=== PATIENT | female | born 1960 | race Caucasian/White ===

== ENCOUNTER 2018-10-11 06:58 | Inpatient (IN) | payer MEDICARE, MEDICAID ==
[~2018-10-11] VITALS: Ht 167.6 cm; Wt 125.6 kg
[2018-10-11] MEDS ORDERED: ESCI10TA2 PO (07:41)
[2018-10-11] MEDS ORDERED: MUCI600T37 PO (07:41)
[2018-10-11] MEDS ORDERED: AUGM250S13 PO (07:41)
[2018-10-11] MEDS ORDERED: SOTA80TA PO (07:41)
[2018-10-11] MEDS ORDERED: METF500T13 PO ×2 (07:41→10:53)
[2018-10-11] MEDS ORDERED: WARF-60 PO (07:41)
[2018-10-11] MEDS ORDERED: OMEP10CASR PO (07:41)
[2018-10-11] MEDS ORDERED: SYMB16INH INH (07:56)
[2018-10-11] MEDS ORDERED: MECL-68 PO (07:56)
[2018-10-11] MEDS ORDERED: ATIV1TAB7 PO (07:56)
[2018-10-11] MEDS ORDERED: LOPE2CA PO (08:21)
[2018-10-11 08:30] LABS: HEMATOCRIT 36.4 % (36.0-47.0); HEMOGLOBIN 11.3 g/dl (12.0-15.5)
[2018-10-11] MEDS ORDERED: ALBU83IN PO (08:30)
[2018-10-11] MEDS ORDERED: NYST1POW9 TOP (10:53)
[2018-10-11] MEDS ORDERED: AMOX400S PO (10:53)
[2018-10-11] MEDS ORDERED: KLOR CON PO (10:53)
[2018-10-11] MEDS ORDERED: OMEP20CA3 PO (10:53)
[2018-10-11] MEDS ORDERED: hydrOXYzine 50 MG TAB PO STA (12:29)
[2018-10-11] MEDS ORDERED: ACETAMINOPHEN TAB 650MG DOSE (2X325MG) PO PRN (12:30)
[2018-10-11] MEDS ORDERED: MAALOX 30 ML SUSP *UDC PO PRN (12:30)
[2018-10-11] MEDS ORDERED: MOM 30ML SUSPENSION UDC PO PRN (12:30)
[2018-10-11] MEDS ORDERED: traZODone 50 MG TAB PO PRN (12:30)
[2018-10-11 13:05] VITALS: BP 120/56
[2018-10-11] MEDS ORDERED: LOPERAMIDE 2 MG CAP PO PRN (15:15)
[2018-10-11] MEDS ORDERED: NYSTATIN 100,000 UNITS/GM TOPICAL PWD 15 GM TOP PRN (15:15)
[2018-10-11] MEDS ORDERED: MECLIZINE 25 MG TABLET PO PRN (15:15)
[2018-10-11 16:12] LABS: HEMATOCRIT 36.8 % (36.0-47.0); HEMOGLOBIN 11.3 g/dl (12.0-15.5); MEAN CORPUSCULAR HEMOGLOBIN 26.9 pg (27.0-33.0); MEAN CORPUSCULAR HGB CONC 30.7 g/dl (32.0-36.5); MEAN CORPUSCULAR VOLUME 87.6 fl (80.0-96.0); PLATELET COUNT, AUTOMATED 298 10^3/uL (150-450); WHITE BLOOD COUNT 7.8 10^3/uL (4.0-10.0)
[2018-10-11 16:24] LABS: INR 1.83; PROTHROMBIN TIME 21.5 SECONDS (12.1-14.4)
[2018-10-11 16:25] LABS: PARTIAL THROMBOPLASTIN TIME 32.1 SECONDS (25.4-37.6)
[2018-10-11 16:40] LABS: ALBUMIN 3.5 GM/DL (3.2-5.2); ALT/SGPT 97 U/L (12-78); BILIRUBIN,TOTAL 0.5 MG/DL (0.2-1.0); BLOOD UREA NITROGEN 13 MG/DL (7-18); CALCIUM LEVEL 9.1 MG/DL (8.5-10.1); CARBON DIOXIDE LEVEL 28 MEQ/L (21-32); CHLORIDE LEVEL 103 MEQ/L (98-107); CREATININE FOR GFR 0.99 MG/DL (0.55-1.30); GLOMERULAR FILTRATION RATE > 60.0 (>51); GLUCOSE, FASTING 131 MG/DL (70-100); POTASSIUM SERUM 3.8 MEQ/L (3.5-5.1); SODIUM LEVEL 137 MEQ/L (136-145); TOTAL PROTEIN 7.5 GM/DL (6.4-8.2)
[2018-10-11] MEDS: ESCITALOPRAM OXALATE 10 MG TAB (LEXAPRO) PO SCH (17:18)
[2018-10-11] MEDS: metFORMIN (GLUCOPHAGE) 500 MG TAB PO SCH (17:18)
[2018-10-11] MEDS: hydrOXYzine 50 MG TAB PO PRN (18:58)
[2018-10-11] MEDS: WARFARIN SOD 3 MG TAB PO SCH (19:07)
[2018-10-11] MEDS: ALBUTEROL SULFATE 2.5 MG/0.5 ML INH NEB SOLN INH PRN (19:20)
[2018-10-11] MEDS: SYMBICORT 160/4.5MCG INHALER 6GM INH SCH (21:00)
[2018-10-11] MEDS: NYSTATIN 100,000 UNITS/GM TOPICAL PWD 15 GM TOP SCH (21:00)
[2018-10-11] MEDS: AUGMENTIN BID 400MG/5ML SUSP 50ML BTL PO SCH (21:29)
[2018-10-11] MEDS: OMEPRAZOLE 20 MG CAP PO SCH (21:29)
[2018-10-11] MEDS: SOTALOL HCL 80 MG TAB PO SCH (21:29)
[2018-10-12 06:37] VITALS: BP 120/82
[2018-10-12 06:57] LABS: BASO % 0.4 % (0.0-1.0); EOS # 0.3 10^3/uL (0.0-0.50); HEMATOCRIT 35.2 % (36.0-47.0); HEMOGLOBIN 10.9 g/dl (12.0-15.5); LYMPH # 2.3 10^3/uL (1.5-4.5); LYMPH % 30.6 % (24.0-44.0); MEAN CORPUSCULAR VOLUME 87.3 fl (80.0-96.0); MONO # 0.6 10^3/uL (0.0-0.8); MONO % 8.4 % (0.0-5.0); NEUTROPHILS # 4.2 10^3/uL (1.8-7.7); NEUTROPHILS % 56.2 % (36.0-66.0); PLATELET COUNT, AUTOMATED 317 10^3/uL (150-450); RED BLOOD COUNT 4.03 10^6/uL (4.00-5.40); WHITE BLOOD COUNT 7.5 10^3/uL (4.0-10.0)
[2018-10-12 07:11] LABS: INR 1.98; PROTHROMBIN TIME 22.9 SECONDS (12.1-14.4)
[2018-10-12 07:46] LABS: ALBUMIN 3.7 GM/DL (3.2-5.2); ALT/SGPT 80 U/L (12-78); BILIRUBIN,TOTAL 0.8 MG/DL (0.2-1.0); BLOOD UREA NITROGEN 12 MG/DL (7-18); CALCIUM LEVEL 8.7 MG/DL (8.5-10.1); CARBON DIOXIDE LEVEL 26 MEQ/L (21-32); CHLORIDE LEVEL 102 MEQ/L (98-107); CREATININE FOR GFR 0.85 MG/DL (0.55-1.30); GLOMERULAR FILTRATION RATE > 60.0 (>51); GLUCOSE, FASTING 145 MG/DL (70-100); POTASSIUM SERUM 4.1 MEQ/L (3.5-5.1); SODIUM LEVEL 136 MEQ/L (136-145); TOTAL PROTEIN 7.3 GM/DL (6.4-8.2)
[2018-10-12] MEDS: LACTOBACILLUS ACIDOPHILUS CAP (BACID) PO SCH ×2 (07:56→17:28)
[2018-10-12] MEDS: SYMBICORT 160/4.5MCG INHALER 6GM INH SCH ×2 (08:03→20:52)
[2018-10-12] MEDS: ESCITALOPRAM OXALATE 10 MG TAB (LEXAPRO) PO SCH (08:04)
[2018-10-12] MEDS: NYSTATIN 100,000 UNITS/GM TOPICAL PWD 15 GM TOP SCH ×2 (08:04→20:50)
[2018-10-12] MEDS: AUGMENTIN BID 400MG/5ML SUSP 50ML BTL PO SCH ×2 (08:05→20:51)
--- NOTE | 2018-10-12 09:10 | REP ---
Chest two views HISTORY: Pneumonia Comparison: None There is elevation of the right hemidiaphragm. Linear densities are present in the left lower lobe consistent with atelectasis or scar. The right lung is clear. . The heart is normal in size. The pulmonary vasculature is normal in appearance. The bony structure is intact. IMPRESSION: Left lower lobe atelectasis or scar. Electronically Signed by Philip Trejo MD 10/12/2018 09:01 A
--- NOTE | 2018-10-12 10:31 | HPE ---
DATE OF ADMISSION: 10/11/2018 HISTORY OF PRESENT ILLNESS: Please refer to psychiatric history and evaluation for further details on this admission. This examination and history is intended for medical issues which may need treatment, followup or consult on this 58-year-old female who was transferred from [facility] where she had initially gone for increased mucous. She stated she was going to kill herself when they were preparing to discharge her. She was transferred to inpatient mental health here in [place]. ETOH once a month. Smoking: She states she quit in 2005. Recreational drug use none. FAMILY HISTORY: Noncontributory. PAST MEDICAL HISTORY: Depression/anxiety. Gastroesophageal reflux disease (GERD). Non-insulin dependent diabetes type 2. Premature ventricular contractions. History of pulmonary embolism (PE). History of lupus, anticoagulant. History of recent gastrointestinal (GI) bleed and pneumonia treated at [facility]. PAST SURGICAL HISTORY: Bowel resection. She had an ileostomy with reversal. Bilateral knee surgery. section. Kidney stones with history of stent. She has a history of Rosa filter. HOME MEDICATIONS: - lorazepam 1 mg by mouth three times daily as needed anxiety - Chlor-Con 20 mEq by mouth daily - albuterol 2.5 two puffs by mouth every 6 hours as needed shortness of breath - Augmentin suspension by mouth twice daily - Lexapro 10 mg by mouth daily - guaifenesin 600 mg by mouth twice daily as needed chest congestion - loperamide 2 mg two caps by mouth as needed diarrhea - meclizine 25 mg by mouth three times daily as needed dizziness - metformin 500 mg by mouth daily every evening - Nystatin 100,000 units powder apply to affected areas on groin and abdominal folds bilaterally twice daily - omeprazole 20 mg by mouth daily - sotalol 80 mg by mouth daily - warfarin 6 mg by mouth daily LABORATORY STUDIES: Hemoglobin and hematocrit this morning 11.3/36.4, afternoon 11.3/26.8. Platelets 298. BUN was 13, creatinine was 0.99, electrolytes were normal. Nonfasting blood sugar was 131. Liver enzymes were elevated at 116 and 97, will recheck in the a.m. Patient is on warfarin. INR slightly low at 1.83. She states she just recently restarted it on . REVIEW OF SYSTEMS: No complaint of headache. No blurry or double vision. No fever. No chills. No tinnitus. No hoarseness. She states when she gets a lot of mucous she has difficulty swallowing. Feels like she cannot swallow. No lightheadedness. Occasional vertigo. BREASTS: No masses. CARDIOVASCULAR: No complaints of chest pain, shortness of breath, palpitations or edema. RESPIRATORY: She had a cough with mucous production, wheeze. Denies orthopnea. GI: No nausea, vomiting. No hematochezia, no melena. No complaints of abdominal pain. Complaints of diarrhea 12-15 stools loose already today. : No hematuria, dysuria or frequency. MUSCULOSKELETAL: No joint redness or swelling. ENDOCRINE: History of non-insulin dependent diabetes type 2. HEMATOLOGICAL: History of anemia and GI bleed. NEUROLOGICAL: History of neuropathy. No history of seizures. PSYCHOLOGICAL: History of anxiety and depression. OBJECTIVE: 58-year-old cooperative female in no acute distress. Height 66 inches, weight 125.5 kg. BMI 24.7. Pupils equal and reactive to light. Extraocular movements intact. Cornea and sclera clear. Conjunctiva normal. No facial asymmetry. Pharynx, tongue and gums pink and moist. Tongue is midline. Neck is supple, without lymphadenopathy. No thyromegaly. No goiter. Carotids 2+ without bruit. Chest clear to auscultation, without wheeze or retraction. Heart is regular. Abdomen benign. Bowel sounds positive. Genitourinary ()/Rectal: Not done. Extremities show trace bilateral lower extremity edema. No cyanosis or clubbing. Peripheral pulses equal and palpable bilaterally. IMPRESSION/PLAN: 1. Recent history of GI bleed and pneumonia from [facility]. Get discharge information from [place] [facility] and discharge summary. Continue Augmentin and guaifenesin. Send sputum for culture and sensitivity. 2. Diarrhea, get a GI panel. Send also stools for history of GI bleed. 3. History of PVCs, continue sotalol. 4. History of non-insulin dependent diabetes type 2. Continue diet consistent carbohydrate and medication. 5. History of lupus anticoagulant. 6. History of pulmonary embolism, continue warfarin. 7. Daily PT/INRs. Monitor for bleeding. Stools for occult blood. 8. Psychiatric plan per psychiatry. 9. Oxygen at 2 liters nasal cannula at bedtime as patient states at home. 10. Nystatin powder to abdominal folds twice daily.
--- NOTE | 2018-10-12 12:43 | MHHPEPDOC ---
General Date Of Admission: Oct 11, 2018 Legal Status: 9.39 Chief Complaint "I panicked and said I was going to kill myself." History of Present Illness HISTORY OF THE PRESENT ILLNESS: Patient is a 58 -year-old , female, with a history of depression and anxiety and multiple medical comorbidities who was sent to [facility] from [facility] after telling staff there that if she went home she would crush all her pills and take them "if I have to deal with what I with... yes, I'll hurt myself." Pt sent to [facility] to get help for the mucus feeling in her throat that causes her to panic and having difficulty breathing. Once in [facility] ED, stated she "panicked" and said she was going to hurt herself but denied that she did in actuality want to harm herself. Stated she just wanted to get help for the mucus in her throat and didn't want to go home. Stated to has a fear of dying alone in her apt and no one finding her. Pt stated she was recently discharged from [facility] for a bowel obstruction and was diagnosis with anxiety secondary to general medical illness. Stated she had been on prozac in the past but stopped taking in when doing better causing symptoms to come back. Psychiatric Review of Systems Depression (2 or more weeks): depressed mood, difficulty concentrating, appetite changes, suicidal thoughts Nevaeh (4 or more days of): denies Psychosis: denies Anxiety: gen/non-specific anxiety, situational anxiety, stressor related anxiety, panic attacks, other (mucus in throat) Anxiety/ 6 months or more of: restlessness, keyed up, difficulty concentrating, irritability Past Psychiatric History Previous Psychiatric Diagnosis: depression, anxiety due to [facility] Previous Psychiatric Admissions: denies Suicide Attempts: denies Psychiatric Follow-up: PCP Psychiatric medications: lexapro, ativan Past Medical History Medical Problems hx of PVCs, Hx of PE on warfarin, NIDDM newly diagnosis, CAD Head Injury: No Seizures: No Hospitalizations: Yes Surgeries: Yes (ileostomy w/reversal, , bowel resection, multiple b/c knee surgeries) Family Medical/Psychiatric HX Medical Problems noncontributory Psychiatric Disorders: No Suicide Attemps/Completions: No (prescribed ativan) Social History Childhood: born and raised in [place], 2 parent home, 1 sister, happy childhood Abuse/Trauma:denies Current Living Situation: lives alone in [place], father lives with her during summer months when not in [place] Education: high school edu, some college Employment: retired, on [employer] 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, sister, 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 Legal: denies Marital: divorce, 1 adult child Mental Status Examination General Appearance: well groomed, ds/not appear stated age (older), hospital scubs/clothing Build: overweight Demeanor: average, very figety Eye Contact: average Activity: average, anxious Behavior: cooperative, restless Speech: clear, normal volume, reg/rate,rhythm,volume Mood: euthymic, anxious Mood anxious Affect: full, appropriate, congruent, anxious Thought Process: logical/linear, intact, other (cognitive distortions) Thought Content (Delusions): denies SI, HI, AVH Thought Content (Other): obsessional Thought Content (Aggressive): none reported Perception (Hallucinations): none reported Perception (Other): none reported Cognition (Impairment of): none reported Cognition(Intelligence Est.): average Oriented: Awake, Alert, Oriented times three Insight: fair Judgment: Fair Psychosis: Denies Diagnoses Anxiety due to GMC of improving bronchitis Anxiety d/o unspecified Depression unspecified Assessment Pt seen and states she here b/c "I said I was going to crush all my pills and take them b/c I was so upset and afraid to go home and face what I've been facing whenever the mucus gets suck in my throat that really scares me and gives me anxiety and I think I'm going to " States the mucus comes randomly and comes on it's own. States she had bronchitis a few weeks ago and has been doing what her doctors have told her to clear the phlegm but just isn't working. Discussed coping strategies for her anxiety progression during times when she feels mucus to think more logically utilizing CBT methods rather than catastrophizing and future foretelling. Also discussed having someone call her on a daily basis to improve fear of dying alone in apt and no one knowing. Agreeable to increase in lexapro for mood, d/c ativan, start vistaril prn anxiety. Risks/benefits discussed. Denies SI/HI, hallucinations, delusions. Feels safe here. Initial Treatment Plan 1. Patient was admitted on a 9.39 status. 2. Complete history was obtained. 3. With patients permission, family will be contacted and database will be expanded. 4. Patients medication regimen will be reviewed and changed accordingly. 5. Patient will be provided with protected environment. 6. Patient will be treated with individual, group, and milieu therapies. 7. Patient will receive supportive psych-education. 8. Discharge planning will commence immediately. 9. Outpatient follow-up treatment will be strongly recommended. 10. The initial treatment plan will focus initially on: * Depression. * Risk for suicide. * Substance abuse. 11. increase lexapro 20mg daily, start vistaril 50mg q6hr prn anxiety, d/c ativan ESTIMATED LENGTH OF STAY: 3-5 DAYS. TIME SPENT COUNSELING AND COORDINATING INITIAL CARE: 60 minutes. Vital Signs Vital Signs Date Time Temp Pulse Resp B/P (MAP) Pulse Ox O2 Delivery O2 Flow Rate FiO2 10/12/18 08:04 Room Air 10/12/18 06:37 98.0 99 20 120/82 (95) 10/11/18 13:05 97 Laboratory Data 24H Labs Laboratory Tests 2 10/11/18 16:03: Nucleated Red Blood Cells % (auto) 0.0, Prothrombin Time 21.5H, Prothromb Time International Ratio 1.83, Activated Partial Thromboplast Time 32.1, Anion Gap 6L, Glomerular Filtration Rate > 60.0, Blood Urea Nitrogen 13, Creatinine 0.99, Sodium Level 137, Potassium Level 3.8, Chloride Level 103, Carbon Dioxide Level 28, Calcium Level 9.1, Aspartate Amino Transf (AST/SGOT) 116H, Alanine Aminotransferase (ALT/SGPT) 97H, Alkaline Phosphatase 99, Total Bilirubin 0.5, Total Protein 7.5, Albumin 3.5, Albumin/Globulin Ratio 0.88L 10/11/18 16:37: Bedside Glucose (Misc Panel) 108H 10/12/18 06:15: Bedside Glucose (Misc Panel) 144H 10/12/18 06:28: Nucleated Red Blood Cells % (auto) 0.0, Prothrombin Time 22.9H, Prothromb Time International Ratio 1.98, Anion Gap 8, Glomerular Filtration Rate > 60.0, Blood Urea Nitrogen 12, Creatinine 0.85, Sodium Level 136, Potassium Level 4.1, Chloride Level 102, Carbon Dioxide Level 26, Calcium Level 8.7, Aspartate Amino Transf (AST/SGOT) 71H, Alanine Aminotransferase (ALT/SGPT) 80H, Alkaline Phosphatase 101, Total Bilirubin 0.8#, Total Protein 7.3, Albumin 3.7, Albumin/Globulin Ratio 1.03, Immature Granulocyte % (Auto) 0.4, White Blood Count 7.5, Red Blood Count 4.03, Hemoglobin 10.9L, Hematocrit 35.2L, Mean Corpuscular Volume 87.3, Mean Corpuscular Hemoglobin 27.0, Mean Corpuscular Hemoglobin Concent 31.0L, Red Cell Distribution Width 14.6H, Platelet Count 317, Neutrophils (%) (Auto) 56.2, Lymphocytes (%) (Auto) 30.6, Monocytes (%) (Auto) 8.4H, Eosinophils (%) (Auto) 4.0H, Basophils (%) (Auto) 0.4, Neutrophils # (Auto) 4.2, Lymphocytes # (Auto) 2.3, Monocytes # (Auto) 0.6, Eosinophils # (Auto) 0.3, Basophils # (Auto) 0.0 CBC/BMP Laboratory Tests 10/11/18 16:03 Red Blood Count 4.20, Mean Corpuscular Volume 87.6, Mean Corpuscular Hemoglobin 26.9 L, Mean Corpuscular Hemoglobin Concent 30.7 L, Red Cell Distribution Width 14.6 H, Calcium Level 9.1, Aspartate Amino Transf (AST/SGOT) 116 H, Alanine Aminotransferase (ALT/SGPT) 97 H, Alkaline Phosphatase 99, Total Bilirubin 0.5, Total Protein 7.5, Albumin 3.5 10/12/18 06:28 Red Blood Count 4.03, Mean Corpuscular Volume 87.3, Mean Corpuscular Hemoglobin 27.0, Mean Corpuscular Hemoglobin Concent 31.0 L, Red Cell Distribution Width 14.6 H, Calcium Level 8.7, Aspartate Amino Transf (AST/SGOT) 71 H, Alanine Aminotransferase (ALT/SGPT) 80 H, Alkaline Phosphatase 101, Total Bilirubin 0.8 #, Total Protein 7.3, Albumin 3.7, Neutrophils (%) (Auto) 56.2, Lymphocytes (%) (Auto) 30.6, Monocytes (%) (Auto) 8.4 H, Eosinophils (%) (Auto) 4.0 H, Basophils (%) (Auto) 0.4, Neutrophils # (Auto) 4.2, Lymphocytes # (Auto) 2.3, Monocytes # (Auto) 0.6, Eosinophils # (Auto) 0.3, Basophils # (Auto) 0.0 Medications Scheduled Amoxicillin/Clavulanate Potas (Amoxicillin/Clavulanate P 400-57 mg/5Ml) 1 Marcela Marcela, 10.9 ML PO BID, (Reported) FILLED 10/09/18 FOR 8 DAYS Escitalopram Oxalate (Escitalopram Oxalate) 10 Mg Tab, 10 MG PO DAILY, (Reported) Metformin Hydrochloride (Metformin HCl) 500 Mg Tab, 500 MG PO QPM, (Reported) Omeprazole (Omeprazole) 20 Mg Cap, 20 MG PO DAILY for GERD, (Reported) Sotalol Hcl (Betapace) 80 Mg Tab, 80 MG PO DAILY for ., (Reported) RX IS FOR BID - PATIENT STATES TAKE QD Warfarin Sod (Warfarin Sodium) 6 Mg Tab, 6 MG PO DAILY for blood clotting disorder, (Reported) [Klor-Con Packet] , 20 MEQ PO DAILY for supplement, (Reported) Scheduled PRN Albuterol Sulfate (Albuterol Sulfate) 2.5 Mg/3 Ml Nebu, 2.5 MG PO Q6H PRN for SHORTNESS OF BREATH, (Reported) Guaifenesin (Mucinex) 600 Mg Tab, 600 MG PO BID PRN for CHEST CONGESTION, (Repo rted) Loperamide HCl (Loperamide HCl) 2 Mg Cap, 2 MG PO PRN PRN for DIARRHEA, (Reported) Lorazepam (Ativan) 1 Mg Tab, 1 MG PO TID PRN for ANXIETY/AGITATION, (Reported) Meclizine HCl (Meclizine HCl) 25 Mg Tab, 25 MG PO TID PRN for DIZZINESS, (Reported) Nystatin (Nystatin Powder) 100,000 Unit/Gm Pow, 1 DOSE TOP BID PRN for RASH/ITCHING, (Reported) APPLY TO ABDOMEN Allergies Coded Allergies: Tetracyclines & Related (Verified Allergy, Mild, rash, 10/11/18) IHSAN WALL DO Oct 12, 2018 12:43
[2018-10-12] MEDS ORDERED: ESCITALOPRAM OXALATE 10 MG TAB (LEXAPRO) PO ONE (13:00)
[2018-10-12] MEDS: WARFARIN SOD 3 MG TAB PO SCH (17:24)
[2018-10-12] MEDS: metFORMIN (GLUCOPHAGE) 500 MG TAB PO SCH (17:27)
[2018-10-12 18:50] VITALS: BP 132/82
[2018-10-12 20:48] VITALS: BP 142/78
[2018-10-12] MEDS: SOTALOL HCL 80 MG TAB PO SCH (20:48)
[2018-10-12] MEDS: OMEPRAZOLE 20 MG CAP PO SCH (20:49)
[2018-10-12] MEDS: guaiFENesin ER 600 MG TAB PO PRN ×2 (20:54→21:17)
[2018-10-12] MEDS: hydrOXYzine 50 MG TAB PO PRN (22:08)
[2018-10-12] MEDS: ALBUTEROL SULFATE 2.5 MG/0.5 ML INH NEB SOLN INH PRN (23:55)
[2018-10-13 06:49] LABS: BASO % 0.4 % (0.0-1.0); EOS # 0.3 10^3/uL (0.0-0.50); EOS % 3.3 % (0.0-3.0); HEMATOCRIT 33.9 % (36.0-47.0); HEMOGLOBIN 10.4 g/dl (12.0-15.5); LYMPH # 2.4 10^3/uL (1.5-4.5); LYMPH % 31.6 % (24.0-44.0); MEAN CORPUSCULAR HEMOGLOBIN 26.5 pg (27.0-33.0); MEAN CORPUSCULAR HGB CONC 30.7 g/dl (32.0-36.5); MEAN CORPUSCULAR VOLUME 86.5 fl (80.0-96.0); MONO # 0.8 10^3/uL (0.0-0.8); MONO % 10.9 % (0.0-5.0); NEUTROPHILS % 53.4 % (36.0-66.0); PLATELET COUNT, AUTOMATED 299 10^3/uL (150-450); RED BLOOD COUNT 3.92 10^6/uL (4.00-5.40); WHITE BLOOD COUNT 7.5 10^3/uL (4.0-10.0)
[2018-10-13 06:50] VITALS: BP 99/62
[2018-10-13 06:59] LABS: INR 2.16; PROTHROMBIN TIME 24.5 SECONDS (12.1-14.4)
[2018-10-13 07:14] LABS: ALBUMIN 3.5 GM/DL (3.2-5.2); ALT/SGPT 63 U/L (12-78); BILIRUBIN,TOTAL 0.4 MG/DL (0.2-1.0); BLOOD UREA NITROGEN 12 MG/DL (7-18); CALCIUM LEVEL 8.8 MG/DL (8.5-10.1); CARBON DIOXIDE LEVEL 28 MEQ/L (21-32); CHLORIDE LEVEL 106 MEQ/L (98-107); CREATININE FOR GFR 0.76 MG/DL (0.55-1.30); FERRITIN 9 NG/ML (8-252); GLOMERULAR FILTRATION RATE > 60.0 (>51); GLUCOSE, FASTING 126 MG/DL (70-100); IRON (FE) 24 UG/DL (50-170); PERCENT SATURATION 6.1 % (13.2-45.0); POTASSIUM SERUM 4.8 MEQ/L (3.5-5.1); SODIUM LEVEL 139 MEQ/L (136-145); TOTAL IRON BINDING CAPACITY 391 UG/DL (250-450); TOTAL PROTEIN 7.1 GM/DL (6.4-8.2)
[2018-10-13] MEDS: LACTOBACILLUS ACIDOPHILUS CAP (BACID) PO SCH (08:50)
[2018-10-13] MEDS: AUGMENTIN BID 400MG/5ML SUSP 50ML BTL PO SCH (08:50)
[2018-10-13] MEDS: NYSTATIN 100,000 UNITS/GM TOPICAL PWD 15 GM TOP SCH (08:50)
[2018-10-13] MEDS: SYMBICORT 160/4.5MCG INHALER 6GM INH SCH (08:50)
[2018-10-13] MEDS ORDERED: FERROUS SULFATE 325MG TAB PO SCH (09:00)
[2018-10-13] MEDS ORDERED: ESCITALOPRAM OXALATE 10 MG TAB (LEXAPRO) PO SCH (09:00)
[2018-10-13] MEDS: ALBUTEROL SULFATE 2.5 MG/0.5 ML INH NEB SOLN INH PRN (09:16)
[2018-10-13] MEDS ORDERED: HYDRO50TAB PO (09:22)
[2018-10-13] MEDS ORDERED: ESCI10TA2 PO (09:22)
--- NOTE | 2018-10-13 09:22 | MHDSPDOC ---
[facility] Discharge Summary Discharge Summary DATE OF ADMISSION: Oct 11, 2018 at 12:29 pm DATE OF DISCHARGE: Oct 13, 2018 DISCHARGE DIAGNOSES: Anxiety due to GMC of improving bronchitis Anxiety d/o unspecified Depression unspecified REASON FOR ADMISSION: Patient is a 58 -year-old , female, with a history of depression and anxiety and multiple medical comorbidities who was sent to [facility] from [facility] after telling staff there that if she went home she would crush all her pills and take them "if I have to deal with what I with... yes, I'll hurt myself." Pt sent to [facility] to get help for the mucus feeling in her throat that causes her to panic and having difficulty breathing. Once in [facility] ED, stated she "panicked" and said she was going to hurt herself but denied that she did in actuality want to harm herself. Stated she just wanted to get help for the mucus in her throat and didn't want to go home. Stated to has a fear of dying alone in her apt and no one finding her. Pt stated she was recently discharged from [facility] for a bowel obstruction and was diagnosis with anxiety secondary to general medical illness. Stated she had been on prozac in the past but stopped taking in when doing better causing symptoms to come back. CONSULTANTS INVOLVED: none TREATMENT AND PROGRESS ON THE UNIT : [facility], seen for p sychiatric assessment and restarted on her outpatient lexapro increased to 20mg daily which she tolerated well and found beneficail. Her outpatient ativan was discontinued. She was provided vistaril 50mg q6hr prn anxiety and trazodone 50mg qhs prn insomnia. Pt found her medications beneficial and tolerated them well. She ws continued on her medical meds and 2% oxygen at night. She attended ledy ups daily during her stay. Her symptoms improved with treatment and denied feelings of mucus in her throat and panic while on unit. On day of discharge she denied depression, anxiety, insomnia, SI/HI, hallucinations, delusions. She was discharged home (her sister is drove up to stay with her upon d/c) with follow-up at [facility]. She felt safe for discharge. DISCHARGE ASSESSMENT: Pt seen and states she much better and denies feelings of mucus in her throat causing inability to breath and panic thru out her admission. States she's tolerating the increase in her lexapro and is finding it beneficial. Feels vistaril is beneficial for her anxiety. Attended groups during her stay that she found helpful as learned coping skills for here anxiety. Denies deprssion, anxiety, insomnia, SI/HI, hallucinations, delusions. Feels safe to be discharged home. Her sister has driven up to stay with her after pt d/c. MENTAL STATUS EXAMINATION ON DISCHARGE: General Appearance: well groomed, ds/not appear stated age (older), hospital scrubs/clothing Build: overweight Demeanor: average, calm Eye Contact: average Activity: average, calm Behavior: cooperative Speech: clear, normal volume, reg/rate,rhythm,volume Mood: euthymic, full, bright Mood much better Affect: full, appropriate, congruent, bright Thought Process: logical/linear, intact Thought Content (Delusions): denies SI, HI, AVH Thought Content (Other): obsessional Thought Content (Aggressive): none reported Perception (Hallucinations): none reported Perception (Other): none reported Cognition (Impairment of): none reported Cognition(Intelligence Est.): average Oriented: Awake, Alert, Oriented times three Insight: good Judgment: good Psychosis: Denies MEDICATIONS ON DISCHARGE: lexapro 20mg daily vistaril 50mg q6hr prn anxiety PLAN/FOLLOWUP ARRANGEMENTS: D/c home with follow-up at [facility]. The amount of time spent in the coordination of care for this patient was approximately 30 minutes. Vital Signs/I&Os Vital Signs Date Time Temp Pulse Resp B/P (MAP) Pulse Ox O2 Delivery O2 Flow Rate FiO2 10/13/18 06:50 97.8 73 18 99/62 (74) 10/12/18 08:04 Room Air 10/11/18 13:05 97 Laboratory Data Labs 24H Laboratory Tests 2 10/12/18 17:20: Bedside Glucose (Misc Panel) 113H 10/13/18 06:27: Immature Granulocyte % (Auto) 0.4, White Blood Count 7.5, Red Blood Count 3.92L, Hemoglobin 10.4L, Hematocrit 33.9L, Mean Corpuscular Volume 86.5, Mean Corpuscular Hemoglobin 26.5L, Mean Corpuscular Hemoglobin Concent 30.7L, Red Cell Distribution Width 14.6H, Platelet Count 299, Neutrophils (%) (Auto) 53.4, Lymphocytes (%) (Auto) 31.6, Monocytes (%) (Auto) 10.9H, Eosinophils (%) (Auto) 3.3H, Basophils (%) (Auto) 0.4, Neutrophils # (Auto) 4.0, Lymphocytes # (Auto) 2.4, Monocytes # (Auto) 0.8, Eosinophils # (Auto) 0.3, Basophils # (Auto) 0.0, Nucleated Red Blood Cells % (auto) 0.0, Prothrombin Time 24.5H, Prothromb Time International Ratio 2.16, Anion Gap 5L, Glomerular Filtration Rate > 60.0, Blood Urea Nitrogen 12, Creatinine 0.76, Sodium Level 139, Potassium Level 4.8, Chlor orion Level 106, Carbon Dioxide Level 28, Calcium Level 8.8, Aspartate Amino Transf (AST/SGOT) 50H, Alanine Aminotransferase (ALT/SGPT) 63, Alkaline Phosphatase 98, Total Bilirubin 0.4, Total Protein 7.1, Albumin 3.5, Iron Level 24L, Total Iron Binding Capacity 391, Transferrin % Saturation 6.1L, Ferritin 9, Albumin/Globulin Ratio 0.97L CBC/BMP Laboratory Tests 10/13/18 06:27 Red Blood Count 3.92 L, Mean Corpuscular Volume 86.5, Mean Corpuscular Hemoglobin 26.5 L, Mean Corpuscular Hemoglobin Concent 30.7 L, Red Cell Distribution Width 14.6 H, Neutrophils (%) (Auto) 53.4, Lymphocytes (%) (Auto) 31.6, Monocytes (%) (Auto) 10.9 H, Eosinophils (%) (Auto) 3.3 H, Basophils (%) (Auto) 0.4, Neutrophils # (Auto) 4.0, Lymphocytes # (Auto) 2.4, Monocytes # (Auto) 0.8, Eosinophils # (Auto) 0.3, Basophils # (Auto) 0.0, Calcium Level 8.8, Aspartate Amino Transf (AST/SGOT) 50 H, Alanine Aminotransferase (ALT/SGPT) 63, Alkaline Phosphatase 98, Total Bilirubin 0.4, Total Protein 7.1, Albumin 3.5 Medications Scheduled Amoxicillin/Clavulanate Potas (Amoxicillin/Clavulanate P 400-57 mg/5Ml) 1 Marcela Marcela, 10.9 ML PO BID, (Reported) FILLED 3/15/19 FOR 8 DAYS Escitalopram Oxalate (Escitalopram Oxalate) 10 Mg Tab, 10 MG PO DAILY, (Reported) Metformin Hydrochloride (Metformin HCl) 500 Mg Tab, 500 MG PO QPM, (Reported) Omeprazole (Omeprazole) 20 Mg Cap, 20 MG PO DAILY for GERD, (Reported) Sotalol Hcl (Betapace) 80 Mg Tab, 80 MG PO DAILY for ., (Reported) RX IS FOR BID - PATIENT STATES TAKE QD Warfarin Sod (Warfarin Sodium) 6 Mg Tab, 6 MG PO DAILY for blood clotting disor reilly, (Reported) [Klor-Con Packet] , 20 MEQ PO DAILY for supplement, (Reported) Scheduled PRN Albuterol Sulfate (Albuterol Sulfate) 2.5 Mg/3 Ml Nebu, 2.5 MG PO Q6H PRN for SHORTNESS OF BREATH, (Reported) Guaifenesin (Mucinex) 600 Mg Tab, 600 MG PO BID PRN for CHEST CONGESTION, (Re ported) Loperamide HCl (Loperamide HCl) 2 Mg Cap, 2 MG PO PRN PRN for DIARRHEA, (Reported) Lorazepam (Ativan) 1 Mg Tab, 1 MG PO TID PRN for ANXIETY/AGITATION, (Reported) Meclizine HCl (Meclizine HCl) 25 Mg Tab, 25 MG PO TID PRN for DIZZINESS, (Reported) Nystatin (Nystatin Powder) 100,000 Unit/Gm Pow, 1 DOSE TOP BID PRN for RASH/ITCHING, (Reported) APPLY TO ABDOMEN Allergies Coded Allergies: Tetracyclines & Related (Verified Allergy, Mild, rash, 10/11/18) IHSAN WALL DO Oct 13, 2018 9:22 am
[2018-10-13 09:55] LABS: VITAMIN B12 LEVEL 623 PG/ML (247-911)
[2018-10-13 09:56] LABS: FOLATE 15.1 NG/ML (>5.4)
[2018-10-14 06:17] LABS: HEPATITIS B SURFACE ANTIGEN NEGATIVE (NEGATIVE)
[2018-10-14 06:44] LABS: HEPATITIS B CORE ANTIBODY IGM NEGATIVE (NEGATIVE); HEPATITIS C VIRUS ABY INDEX 0.6 INDEX (<0.8)
[2018-10-14 06:47] LABS: HEPATITIS A ANTIBODY IGM NEGATIVE (NEGATIVE)
== END 2018-10-13 12:08 | disposition home or self-care (01) | DRG 880 ==
LOC: M ED 06:58 → M ED INP 12:29 → M PSY 13:10
PROVIDERS: ADMIT Psychiatry & Neurology Psychiatry; ATTEND Psychiatry & Neurology Psychiatry
DX: F41.9 Anxiety disorder, unspecified (principal); F32.9 Major depressive disorder, single episode, unspecified; Z79.899 Other long term (current) drug therapy; Z88.8 Allergy status to other drugs, medicaments and biological substances; K21.9 Gastro-esophageal reflux disease without esophagitis; E11.9 Type 2 diabetes mellitus without complications; Z86.711 Personal history of pulmonary embolism; Z87.891 Personal history of nicotine dependence; R19.7 Diarrhea, unspecified; Z79.01 Long term (current) use of anticoagulants; M32.10 Systemic lupus erythematosus, organ or system involvement unspecified

== ENCOUNTER → 2019-01-05 | Outpatient (REF) | payer MEDICARE, MEDICAID ==
[~2019-01-05] MED LIST: ALBU83IN PO; AMOX400S PO; ATIV1TAB7 PO; AUGM250S13 PO; ESCI10TA2 PO; HYDRO50TAB PO; KLOR CON PO; LOPE2CA PO; MECL-68 PO; METF500T13 PO; MUCI600T37 PO; NYST1POW9 TOP; OMEP10CASR PO; OMEP20CA3 PO; SOTA80TA32 PO; SYMB16INH INH; WARF-60 PO
== END ==
LOC: M LABDRAW1 16:06
PROVIDERS: ATTEND Physician Assistant Surgical
DX: M17.0 Bilateral primary osteoarthritis of knee (principal)

== ENCOUNTER → 2019-02-09 | Outpatient (CLI) | payer MEDICARE, MEDICAID ==
[~2019-02-09] MED LIST changes: +METHACHOLINE KIT (J7674) INH ONE; -OMEP20CA3 PO; +OMEP20CA4 PO
== END ==
LOC: M CARPUL 13:35
PROVIDERS: ATTEND Internal Medicine Pulmonary Disease
DX: R05 Cough (principal)

== ENCOUNTER 2022-12-03 11:20 | Outpatient (CLI) | payer MEDICARE, MEDICAID ==
[~2022-12-03 11:20] MED LIST changes: +ALBU2.5V10 PO; -ALBU83IN PO; +ESCI10TA16 PO; -ESCI10TA2 PO; +HYDR1TAB33 PO; -HYDRO50TAB PO; -MECL-68 PO; +MECL1TAB31 PO; -METHACHOLINE KIT (J7674) INH ONE; +OMEP1CAP73 PO; -OMEP20CA4 PO
[2022-12-03] MEDS ORDERED: LIDOCAINE 2% 100MG/5ML SDV (FOR ANES.) ONE (11:21)
[2022-12-03] MEDS ORDERED: PHENYLephrine 500MCG 5ML (100MCG/ML) SYRINGE ONE (11:21)
[2022-12-03] MEDS ORDERED: propofoL 200 MG/20 ML VIAL ONE (11:21)
[2022-12-03] MEDS ORDERED: GLYCOPYRROLATE INJ 0.2 MG/ML 2 ML VIAL ONE (11:21)
[2022-12-03] MEDS ORDERED: diphenhydrAMINE 50MG/ML VIAL ONE (11:21)
[2022-12-03 16:04] VITALS: BP 117/57
== END 2022-12-03 16:22 ==
LOC: M SDC 11:20
PROVIDERS: ATTEND Registered Nurse
DX: M54.2 Cervicalgia (principal); M54.9 Dorsalgia, unspecified
CPT/HCPCS: 72141; 72146; 72148; J1200; J2370

== ENCOUNTER → 2023-09-15 | Outpatient (CLI) | payer MEDICARE, MEDICAID ==
[~2023-09-15] MED LIST changes: +AZO1TAB PO; +B-12100021 PO; +B-122500 PO; +CALTCHW4 PO; +D31000CA4 PO; +FAMO20TA5; +FLUO10CA18 PO; +FLUO20CA22; +IRON15CH PO; +LORA1TAB23; +LOVE1INJ SC; +MACR100C43 PO; +MECL-209 PO; -MECL1TAB31 PO; +MULT1CHW29 PO; +ONDA4TAB6 PO; +PROB250C PO; +TIZA2TA PO; +TRUL10IN; +VITA500075 PO; +VITA500T10 PO; +WARF4TAB52 PO; +[UNRECOGNIZED DRUG - OTHER] PO
== END ==
LOC: M PLAIMG 10:57
PROVIDERS: ATTEND Otolaryngology
DX: J32.9 Chronic sinusitis, unspecified (principal)

== ENCOUNTER 2023-09-17 06:53 | Day surgery (SDC) | payer MEDICARE, MEDICAID ==
[~2023-09-17] VITALS: Ht 165.1 cm; Wt 109.8 kg
[2023-09-17] MEDS ORDERED: LIDOCAINE 2% 100MG/5ML SDV (FOR ANES.) As Ordered ONE (06:57)
[2023-09-17] MEDS ORDERED: ONDANSETRON 4MG 2ML VIAL As Ordered ONE (06:57)
[2023-09-17] MEDS ORDERED: SUGAMMADEX SODIUM 500 MG/5 ML VIAL (BRIDION) As Ordered ONE (06:57)
[2023-09-17] MEDS ORDERED: propofoL 200 MG/20 ML VIAL As Ordered ONE (06:57)
[2023-09-17] MEDS ORDERED: ROCURONIUM BROMIDE 50MG/5ML VIAL As Ordered ONE (06:57)
[2023-09-17] MEDS ORDERED: fentaNYL 250 MCG/5 ML INJECTION As Ordered ONE (07:02)
[2023-09-17] MEDS ORDERED: MIDAZOLAM INJ 2MG/2ML VIAL As Ordered ONE (07:02)
[2023-09-17] MEDS ORDERED: LR 1,000 ML IV SCH ×3 (07:05→10:00)
[2023-09-17] MEDS: OXYMETAZOLINE 0.05% NASAL SPRAY (AFRIN) As Ordered ONE (08:07)
[2023-09-17] MEDS ORDERED: ACETAMINOPHEN 1000MG 100ML IV BAG As Ordered ONE (08:42)
[2023-09-17] MEDS ORDERED: PHENYLephrine 500MCG 5ML (100MCG/ML) SYRINGE As Ordered ONE (08:46)
[2023-09-17] MEDS: LIDOCAINE W/EPINEPHRINE 1% 20ML VIAL As Ordered ONE (08:50)
[2023-09-17] MEDS: COCAINE 4% 4ML NASAL SOLUTION BTL As Ordered ONE (08:50)
[2023-09-17 09:02] LABS: INR 1.07; PROTHROMBIN TIME 13.6 SECONDS (12.5-14.5)
[2023-09-17] MEDS ORDERED: dexmedeTOMIDine (4MCG/ML)200MCG/50ML BTL (PRECEDEX) As Ordered ONE (09:24)
[2023-09-17] MEDS ORDERED: fentaNYL 100 MCG/2 ML INJECTION IV PRN (09:40)
[2023-09-17] MEDS: ONDANSETRON 4MG 2ML VIAL IV PRN (09:57)
[2023-09-17] MEDS ORDERED: HYDROMORPHONE HCL 0.5 MG/ 0.5 ML SYRINGE IV PRN (10:00)
[2023-09-17] MEDS ORDERED: oxyCODONE 5MG TAB PO PRN (10:00)
[2023-09-17] MEDS: METOCLOPRAMIDE INJ 10MG/2ML VIAL IV PRN (10:16)
[2023-09-17 11:30] VITALS: BP 155/78; TEMP 96.8; O2SAT 95
== END 2023-09-17 11:30 | disposition home or self-care (01) ==
LOC: M SDC 06:53
PROVIDERS: ATTEND Otolaryngology
DX: J32.8 Other chronic sinusitis (principal); E11.9 Type 2 diabetes mellitus without complications; D68.62 Lupus anticoagulant syndrome; K58.9 Irritable bowel syndrome, unspecified; G47.30 Sleep apnea, unspecified; Z79.899 Other long term (current) drug therapy; R00.8 Other abnormalities of heart beat; Z79.01 Long term (current) use of anticoagulants; Z86.711 Personal history of pulmonary embolism; Z79.85 Long-term (current) use of injectable non-insulin antidiabetic drugs; Z87.891 Personal history of nicotine dependence; Z88.8 Allergy status to other drugs, medicaments and biological substances
CPT/HCPCS: 31253; 31267; 36415; 61782; 85610; 88305; A6024; C9143; J0131; J2250; J2371; J2405; J2765; J3010

== ENCOUNTER → 2025-03-30 | Outpatient (REF) | payer MEDICARE, MEDICAID ==
[~2025-03-30] MED LIST changes: +FLUO-290 PO; +FLUO-365; -FLUO10CA18 PO; -FLUO20CA22; +NYST1POW3 TOP; -NYST1POW9 TOP; +ONDA-282 PO; -ONDA4TAB6 PO
[2025-03-30 19:11] LABS: BASO # 0.0 10^3/uL (0.0-0.2); BASO % 0.4 % (0.0-1.0); EOS # 0.1 10^3/uL (0.0-0.5); EOS % 1.6 % (0.0-3.0); LYMPH # 1.4 10^3/uL (1.5-5.0); LYMPH % 19.6 % (24.0-44.0); MONO # 0.6 10^3/uL (0.0-0.8); MONO % 8.4 % (2.0-8.0); NEUTROPHILS # 4.8 10^3/uL (1.5-8.5); NEUTROPHILS % 69.7 % (36.0-66.0); PLATELET COUNT, AUTOMATED 239 10^3/uL (150-450)
[2025-03-30 19:13] LABS: C REACTIVE PROTEIN QUANTITATIV 1.75 MG/DL (<1.0)
[2025-03-30 19:15] LABS: ALT/SGPT 48 U/L (7.0-40); AST/SGOT 49 U/L (<34); CALCIUM LEVEL 9.5 MG/DL (8.3-10.6); CARBON DIOXIDE LEVEL 30 MMOL/L (20-31); CHLORIDE LEVEL 100 MMOL/L (98-107); CREATININE FOR GFR 0.66 MG/DL (0.55-1.30); GLOMERULAR FILTRATION RATE > 90.0 (>45); POTASSIUM SERUM 4.4 MMOL/L (3.5-5.1); SODIUM LEVEL 141 MMOL/L (136-145)
[2025-03-30 19:21] LABS: ERYTHROCYTE SEDIMENTATION RATE 36 mm/hr (0-30)
== END ==
LOC: M SFHCRHEU 14:58
PROVIDERS: ATTEND Internal Medicine Rheumatology
DX: R79.82 Elevated C-reactive protein (CRP) (principal); D68.61 Antiphospholipid syndrome; R52 Pain, unspecified; H04.123 Dry eye syndrome of bilateral lacrimal glands